=== PATIENT | female | born 1960 | race Caucasian/White ===

== ENCOUNTER 2025-08-27 10:53 | Outpatient (AMB) | payer MEDICARE, SELFPAY ==
--- NOTE | 2025-08-27 10:57 | MHC.PC.OV ---
Vital Signs 08/27/25 11:06 Height 5 ft 7 in Weight 196 lb BMI 30.7 BP 130/80 Blood Pressure Location Rt brachial Position Sitting Pulse 65 Pulse Source Pulse Oximeter Temp 97.8 F Temp Source Temporal Artery Scan Pulse Oximetry (%) 96 Oxygen Delivery Method Room Air Intake Visit Reasons: New patient Can Line Operator Required: No Accompanied by: Self / Same As Patient Allergies No Known Allergies Allergy (Verified 08/27/25 10:58) Medication List - Last Reconciled 08/27/25 by GRIFFIN Jansne carisoprodol 350 mg PO DAILY PRN celecoxib 100 mg PO BID cholecalciferol (vitamin D3) 1,250 mcg PO QWEEK lisinopril-hydrochlorothiazide 20-12.5 mg 1 tab PO DAILY modafinil 100 mg PO DAILY ofatumumab (Kesimpta Pen) mg subcut valacyclovir 1,000 mg PO Q12H PRN Tobacco use date assessed: 08/27/25 Fall risk assessment: No Falls in past year Last assessed Fall Risk: 08/27/25 Dental Screening Dental Screen Date: 08/27/25 Did you have a dental visit in the last 12 months?: No Did you have a dental problem in the last 6 months where you did not have access to dental care?: No HPI HPI Comments History of Present Illness Details The patient is a 65-year-old female with MS, HTN, joint pain and low vitamin D presenting to establish care and with concerns of worsening arthritis symptoms and a need for preventative care follow-up. The patient has a history of multiple sclerosis, managed with medications including modafinil, Kesimpta, soma and vitamin D supplementation. She is followed by a physician at the [facility]. The patient reports a history of arthritis, with both knees having undergone meniscus surgery. She experiences pain in her knees, neck, hips, and lower back, which has worsened over the past year, affecting her daily activities such as gardening and caring for animals. She has been prescribed Celebrex 100mg for pain management, but reports limited relief. The patient has hypertension, controlled with lisinopril/ hydrochlorothiazide, and her blood pressure readings are stable. Her BP today was 130/80. She also has a history of herpes simplex virus, managed with valacyclovir as needed, particularly after stressful events. In terms of preventative care, she had a colonoscopy in 2020 and is due for another at age 70. She recently completed a mammogram but has not had a Pap smear in several years, with plans to address this in future visits. Patient was informed and verbally consented to the use of an ambient scribe for clinic note documentation during this visit. [facility] Medical History (Updated 08/27/25 @ 18:22 by GRIFFIN Jansen) Bilateral knee pain Health care maintenance HSV (herpes simplex virus) infection Hypertension Lipid screening Low back pain due to bilateral sciatica Medication management Multiple sclerosis Obesity (BMI 30.0-34.9) Osteoporosis screening Surgical History History of colonoscopy (~10/15/21) Family History (Updated 08/27/25 @ 11:12 by Melody Madrigal MA) Mother No problems noted. Father No problems noted. Social History Housing: House Patient Tobacco Use Status: Former Tobacco user e-Cigarette/Vaping Use: Former Use service: No Current occupational status: retired Cognitive needs: No Hearing needs: No Vision needs: No Questionnaire PHQ-9 Over the last 2 weeks, how often have you been bothered by any of the following problems? 1. Little interest or pleasure in doing things: not at all 2. Feeling down, depressed, or hopeless: not at all 3. Trouble falling or staying asleep, or sleeping too much: not at all 4. Feeling tired or having little energy: not at all 5. Poor appetite or overeating: not at all 6. Feeling bad about yourself - or that you are a failure or have let yourself or your family down: not at all 7. Trouble concentrating on things, such as reading the newspaper or watching television: not at all 8. Moving or speaking so slowly that other people could have noticed. Or the opposite - being so fidgety or restless that you have been moving around a lot more than usual: not at all 9. Thoughts that you would be better off or of hurting yourself in some way: not at all Total score: 0 Depression Screening Interpretation: Negative Depression Screening Done: Yes Source: Developed by Drs. Orlando Love, SarahiaVsyl Curtis and colleagues, with an educational aureliano from [employer]. Thrive Questionnaire Date Thrive assessed: 08/27/25 I am a: Patient Within the past 12 months, did the food you bought not last and you didn't have the money to get more?: Never true Do you have trouble paying for medicines?: No Do you have trouble getting transportation to medical appointments?: No Do you have trouble paying your heating and electricity bill?: No Do you have trouble taking care of your child, family member or friend?: No Do you have trouble with day-to-day activities such as bathing, preparing meals, shopping, managing finances, etc.?: No Are you currently unemployed and looking for a job?: No Are you interested in more education?: No THRIVE Score: 0 AUDIT C Alcohol Use Questionnaire (AUDIT-C) 1. How often do you have a drink containing alcohol?: Monthly or less 2. How many drinks containing alcohol do you have on a typical day when you are drinking?: 1 or 2 3. How often do you have six or more drinks on one occasion?: Less than monthly Total Score: 2 KAMILA-7 AMB Questionnaire KAMILA-7 Date KAMILA - 7 assessed: 08/27/25 Feeling nervous, anxious, or on edge: 0 = Not at all Not being able to stop or control worryin = Not at all Worrying too much about different things: 0 = Not at all Trouble relaxin = Not at all Being so restless that it is hard to sit still: 0 = Not at all Becoming easily annoyed or irritable: 0 = Not at all Feeling afraid as if something awful might happen: 0 = Not at all Total KAMILA-7 score (0-4 normal; 5-9 mild; 10-14 moderate; 15-21 severe): 0 Source: Developed by Drs. Orlando Love, Vasyl Santoyo and colleagues, with an educational aureliano from [employer]. KAMILA-7 Assessment Billing KAMILA-7 Assessment Tool: KAMILA-7 Assessment 09785 Review of Systems Narrative CONSTITUTIONAL Negative HEAD/NECK Reports vision changes, wears contacts, and is awaiting an eye doctor appointment. EAR/NOSE/MOUTH/THROAT Negative RESPIRATORY Negative CARDIOVASCULAR Denies chest pain or dyspnea. GASTROINTESTINAL Denies constipation, diarrhea, or heartburn MUSCULOSKELETAL Reports pain in knees, neck, hips, and lower back. Denies weakness but describes a sensation of looseness in the legs. NEUROLOGICAL Reports numbness in legs when standing. PSYCHIATRIC Negative Physical exam (Primary Care) Vital Signs: Last Vital Signs Temp 97.8 F 08/27/25 11:06 Pulse 65 08/27/25 11:06 BP 130/80 08/27/25 11:06 Pulse Ox 96 08/27/25 11:06 Oxygen Delivery Method Room Air 08/27/25 11:06 BMI result Body Mass Index 30.7 GENERAL Well developed, obese, in no apparent distress HEENT Head-Normocephalic Eyes- PERRLA, EOMI, Conjuctiva clear, lids WNL Ears- Canals clear, TMs WNL Mouth/Throat-No lesions, no erythema, no exudate Neck- Supple, No lymphadenopathy, thyroid WNL RESPIRATORY Normal I:E, Clear to auscultation CARDIOVASCULAR Regular, rate and rhythm, No murmurs or rubs GASTROINTESTINAL Soft, nontender, normal bowel sounds, no masses MUSCULOSKELETAL Back-Normal/Decreased ROM, Tender in Lumbar, Tender with motion, Straight leg raise negative, DTR 2+ symmetrical, Gait normal knees- no swelling, Full ROM, tender at joint line. NEUROLOGICAL Gait normal PSYCHIATRIC Oriented to person, place and time Mood and affect WNL Appearance WNL Speech WNL Thought processes WNL Tobacco/Smoking Status: Tobacco use Status Tobacco use date assessed 08/27/25 08/27/25 10:59 Patient Tobacco Use Status Former Tobacco user 08/27/25 11:13 e-Cigarette/Vaping Use Former Use 08/27/25 11:13 PHQ-9: PHQ-9 Score PHQ-9: Total score 0 08/27/25 12:20 Depression Screening Interpretation: Negative Thrive Assessment: Date of Thrive Assessment Date Thrive assessed 08/27/25 08/27/25 10:59 Coding Level of Care Code New Pt New Pt Level 4 (32697) Patient Type New Diagnoses Multiple sclerosis G35 Primary hypertension I10 Hypertension type: primary hypertension Low back pain due to bilateral sciatica M54.41; M54.42 Bilateral knee pain M25.561; M25.562 HSV (herpes simplex virus) infection B00.9 Obesity (BMI 30.0-34.9) E66.9 Additional Codes KAMILA-7 Assessment Billing - KAMILA-7 Assessment Tool: KAMILA-7 Assessment 83711 ([id number]) Time Spent (min) 35 Comment Time was spent on chart review, medication reconciliation, H&P, patient education, orders. Assessment & Plan Assessment & Plan (1) Multiple sclerosis: Code(s): G35 - Multiple sclerosis Category: Medical Plan: The patient will continue current management with modafinil, Kesimpta, and vitamin D supplementation. Regular follow-ups with the MS specialist at the [facility] are advised. Patient to follow up in 3 months or sooner if symptoms persist or worsen. (2) Hypertension: Comment: BP today was 130/80 Code(s): I10 - Essential (primary) hypertension Category: Medical Qualifiers: Hypertension type: primary hypertension Qualified Code(s): I10 - Essential (primary) hypertension Plan: Hypertension is well-controlled with lisinopril hydrochlorothiazide. Regular monitoring of blood pressure is recommended. (3) Low back pain due to bilateral sciatica: Code(s): M54.41 - Lumbago with sciatica, right side; M54.42 - Lumbago with sciatica, left side Category: Medical Plan: The patient is advised to continue Celebrex for pain management. Referral to physical therapy at the [facility] is recommended to address joint pain and mobility issues. Consideration for MRI if symptoms persist post-therapy. Patient to follow up in 3 months or sooner if symptoms persist or worsen. (4) Bilateral knee pain: Code(s): M25.561 - Pain in right knee; M25.562 - Pain in left knee Category: Medical Plan: The patient is advised to continue Celebrex for pain management. Referral to physical therapy at the [facility] is recommended to address joint pain and mobility issues. Consideration for MRI if symptoms persist post-therapy. Patient to follow up in 3 months or sooner if symptoms persist or worsen. (5) HSV (herpes simplex virus) infection: Code(s): B00.9 - Herpesviral infection, unspecified Category: Medical Plan: Valacyclovir is to be used as needed, particularly after stressful events. Patient education on stress management may be beneficial. Patient to follow up as needed if symptoms persist or worsen. (6) Obesity (BMI 30.0-34.9): Comment: BMI today was 30.7 Code(s): E66.9 - Obesity, unspecified Category: Medical Plan: Discussed the health risks of obesity with the patient. Reviewed benefits of even moderate weight loss with the patient. Patient will gradually try and increase exercise to 30-40 min 5-7 times per week. We discussed they may need to break the exercise up into 2-3 sessions daily due to joint pain. We discussed the patient adding more fruits and vegetables to their diet. Will monitor weight and follow up in 3 months. Plan During the visit, we discussed the management of multiple sclerosis with current medications and the importance of regular follow-ups with the specialist. We reviewed the patient's hypertension management, which is stable with current medication. For arthritis, we discussed the continuation of Celebrex and the referral to physical therapy, with the possibility of an MRI if symptoms persist. We also addressed the management of herpes simplex virus with valacyclovir as needed. Preventative care measures, including the need for a Pap smear and future colonoscopy, were outlined. The patient was advised on the importance of lifestyle modifications for obesity management. Orders: Orders Complete Blood Count no Diff Today Z00.00 - Encounter for general adult medical examination without abnormal findings, Z79.899 - Other fdc (current) drug therapy TSH reflex Free T4 Today Z00.00 - Encounter for general adult medical examination without abnormal findings Comprehensive Met. Panel Today Z00.00 - Encounter for general adult medical examination without abnormal findings, Z79.899 - Other long term care pharmacist (current) drug therapy Lipid Panel Today Z00.00 - Encounter for general adult medical examination without abnormal findings, Z13.220 - Encounter for screening for lipoid disorders Vitamin D 25-OH Total Today Z00.00 - Encounter for general adult medical examination without abnormal findings XR DEXA axial skeleton Today Z13.820 - Encounter for screening for osteoporosis PT Evaluation and Treatment Today M25.561 - Pain in right knee, M25.562 - Pain in left knee, M54.41 - Lumbago with sciatica, right side, M54.42 - Lumbago with sciatica, left side Patient Instructions: - Continue current medications for multiple sclerosis and hypertension. - Follow up with physical therapy for arthritis management. - Use valacyclovir as needed for herpes simplex virus. - Schedule a Pap smear and follow up on preventative care measures. - Consider lifestyle modifications for weight management.
[2025-08-27 11:06] VITALS: BP 130/80; PULSE 65; TEMP 36.6; O2SAT 96; BMI 30.7
--- OUTSIDE RECORDS SUMMARY | 2025-08-27 13:18 | XMS_ITS ---
Author Name [facility] Organization Unknown History of Medication Use Medication Directions Dispensed Refills Start Date End Date Stat us carisoprodol (SOMA) 350 MG tablet TAKE 1 TABLET(350 MG) BY MOUTH DAILY NEEDED FOR NECK PAIN Strength: 350 mg 10/12/2023 active Kesimpta 20 MG/0.4ML SOAJ INJECT 20MG SUBCUTANEOUSLY ONCE MONTHLY 05/13/2023 active ergocalciferol (VITAMIN D2) capsule 57771 units TAKE 1 CAPSULE BY MOUTH 1 TIME A WEEK 01/18/2023 aborted valACYclovir (VALTREX) 500 MG tablet TAKE 2 TABLETS BY MOUTH EVERY 12 HOURS NEEDED 02/04/2021 active lisinopril-hydroCHLO ROthiazide (PRINZIDE,ZESTORETIC ) tablet 20-12.5 mg Take 1 tablet by mouth daily. 11/25/2020 active celecoxib (CeleBREX) 100 MG capsule Take 1 capsule (100 mg total) by mouth daily. 11/10/2020 active Problems Problem Status Onset Date Problem Type Date of Resoluti on Source Multiple sclerosis active 2021-01-01 ProblemAct [id number]
--- OUTSIDE RECORDS SUMMARY | 2025-08-27 13:18 | XMS_ITS | Clinical Summary ---
Author Organization [facility] Address [address] [place] [address] Care Team Providers Care Mosaic Worker Name Role Phone Pietro Archer MD Primary Care Provider [phone] Allergies No known active allergies Medications Medication Sig Dispensed Refills Start Date End Date Status lisinopril-hydro CHLOROthiazide (PRINZIDE,ZESTOR ETIC) tablet 20-12.5 mg Take 1 tablet by mouth daily. 0 11/25/2020 Active celecoxib (CeleBREX) 100 MG capsule Take 1 capsule (100 mg total) by mouth daily. 0 11/10/2020 Active valACYclovir (VALTREX) 500 MG tablet TAKE 2 TABLETS BY MOUTH EVERY 12 HOURS NEEDED 0 02/04/2021 Active ergocalciferol (VITAMIN D2) capsule 08280 units Take 1 capsule (50,000 Units total) by mouth once a week. 14.286 capsule 3 03/14/2024 Active Kesimpta 20 MG/0.4ML SOAJ INJECT 20MG SUBCUTANEOUSLY ONCE MONTHLY 0.4 mL 5 04/23/2024 Active Armodafinil 50 MG tablet Take 50 mg by mouth daily. 30 tablet 3 05/23/2024 Active carisoprodol (SOMA) 350 MG tablet TAKE 1 TABLET BY MOUTH EVERY DAY NEEDED FOR NECK PAIN 30 tablet 2 06/12/2024 Active modafinil (PROVIGIL) 100 MG tablet 1 po qd 30 tablet 5 07/04/2024 Active Active Problems Problem Noted Date Diagnosed Date Multiple sclerosis 01/01/2021 Family History Medical History Relation Name Comments Crohn's disease Sister Relation Name Status Comments Sister Social History Tobacco Use Types Packs/Day Years Used Date Smoking Tobacco: Former Cigarettes Q uit: 1989 Smokeless Tobacco: Never Tobacco Cessation:Counseling Given: Not Answered Sex and Gender Information Value Date Recorded Sex Assigned at Female 10/12/2021 10:10 AM EST Gender Identity Not on file Sexual Orientation Not on file Job Start Date Occupation Industry Not on file Not on file Not on file Last Filed Vital Signs Vital Sign Reading Time Taken Comments Blood Pressure 133/80 07/04/2024 10:21 AM EDT Pulse 56 07/04/2024 10:21 AM EDT Temperature 36.1 C (96.9 F) 07/04/2024 10:21 AM EDT Respiratory Rate 16 07/18/2023 10:3 2 AM EDT Oxygen Saturation 95% 07/04/2024 10: 21 AM EDT Inhaled Oxygen Concentration - - Weight 88.4 kg (194 lb 12.8 oz) 024 10:21 AM EDT Height 170.2 cm (5' 7 ) 07/04/2024 10:2 1 AM EDT Body Mass Index 30.51 07/04/2024 10:21 AM EDT Plan of Treatment Health Maintenance Due Date Last Done Comments Hepatitis C Screening 1960 COVID-19 Vaccine (#1) 01/07/1961 Depression Screening 1972 BMI Counseling 1978 Preventative Health Evaluation 1978 DTap / Tdap / Td (1 - Tdap) 1979 Cervical Cancer Screening (P ap Smear) 1981 Colon Cancer Screening (Colonoscopy) 2005 Breast Cancer Screening (Mammogram) 2010 Shingrix-Zoster Vaccine (1 of 2) 2010 Influenza Vaccine (#1) 2025 Fall Risk Assessment 2025 Osteoporosis Screening (DEXA Scan) 2025 Pneumococcal Vaccine (1 of 1 - PCV) 2025 RSV Adult > 60+ Yrs or Pregn ant (1 - 1-dose 75+ series) 2035 Hepatitis B Vaccines Aged Out No long er eligible based on patient's age to complete this topic Pneumococcal Vaccine Aged Out No long er eligible based on patient's age to complete this topic RSV Ped < 20 months Aged Out No longe r eligible based on patient's age to complete this topic Care Teams Mosaic Worker Relationship Specialty Start Date End Date Pietro Archer MD [address] [place] [id number] PCP - General Internal Medicine 11/21/20
== END 2025-08-27 11:45 | disposition home or self-care (01) ==
LOC: HO.HMCHD 10:53
PROVIDERS: PCP Physician Assistant; Visit Provider Physician Assistant Medical
DX: I10 Essential (primary) hypertension (principal); G35.D Multiple sclerosis, unspecified; E66.9 Obesity, unspecified; Z68.30 Body mass index [BMI] 30.0-30.9, adult; M54.41 Lumbago with sciatica, right side; M54.42 Lumbago with sciatica, left side; M25.561 Pain in right knee; M25.562 Pain in left knee; B00.9 Herpesviral infection, unspecified

== ENCOUNTER 2025-08-27 10:53 | Outpatient (REF) | payer MEDICARE, SELFPAY ==
[2025-08-27 13:30] LABS: Hematocrit 42.8 % (37.0-47.0); Hemoglobin 14.6 g/dl (12.0-16.0); Mean Corpuscular HGB Conc 34.1 g/dl (31.0-35.0); Mean Corpuscular Hemoglobin 33.2 pg (27.0-33.0); Mean Corpuscular Volume 97.3 fL (80.0-98.0); NRBC Abs Auto 0.000 X10*3/uL (0.0-0.012); NRBC Pct Auto 0.0 /100WBC (0.0-0.2); Platelet Count 295 X10*3/uL (160-400); Red Blood Count 4.40 X10*6/uL (4.20-5.50); White Blood Count 5.1 X10*3/uL (4.8-10.8)
[2025-08-27 14:01] LABS: Alanine Aminotransferase 37 U/L (0-31); Albumin Level 4.5 g/dL (3.5-5.0); Alkaline Phosphatase 83 U/L (39-117); Anion Gap 10 (12-20); Aspartate Amino Transferase 32 U/L (5-31); Blood Urea Nitrogen 11 mg/dL (9-16); Calcium 10.0 mg/dL (8.4-10.2); Carbon Dioxide 26 mmol/L (22-29); Chloride 105 mmol/L (96-108); Cholesterol 251 mg/dL (<200); Estimated Glomerular Filt Rate > 60; HDL Cholesterol 61 mg/dL (>40); Potassium 3.9 mmol/L (3.3-5.1); Sodium 137 mmol/L (135-145); Total Protein 7.2 g/dL (6.5-8.0); Triglycerides 168 mg/dL (<150)
== END 2025-08-27 10:54 | disposition home or self-care (01) ==
LOC: HO.10HDL 10:53
PROVIDERS: PCP Physician Assistant; Visit Provider Physician Assistant Medical
DX: Z00.00 Encounter for general adult medical examination without abnormal findings (principal); G35.D Multiple sclerosis, unspecified; I10 Essential (primary) hypertension; M54.41 Lumbago with sciatica, right side; M54.42 Lumbago with sciatica, left side; M25.561 Pain in right knee; M25.562 Pain in left knee; B00.9 Herpesviral infection, unspecified; E66.9 Obesity, unspecified; Z13.220 Encounter for screening for lipoid disorders; Z79.899 Other long term (current) drug therapy; Z68.30 Body mass index [BMI] 30.0-30.9, adult
CPT/HCPCS: 36415; 80053; 80061; 82306; 84443; 85027